=== PATIENT | male | born 1940 | race Caucasian/White ===

== ENCOUNTER 2017-01-11 15:34 | Emergency (ER) | payer MEDICARE, OTHER ==
[2017-01-11 14:07] LABS: BASOPHILS 0.3 %; BASOPHILS ABSOLUTE 0.03 10/3/uL (0.0-0.16); EOSINOPHILS 2.4 %; EOSINOPHILS ABSOLUTE 0.26 10/3/uL (0.0-0.53); ER CBC TAT 0 Hrs 03 Mins; HEMATOCRIT 42.8 % (40.0-51.0); HEMOGLOBIN 15.3 g/dL (13.6-17.8); IMMATURE GRANULOCYTES 0.3 %; IMMATURE GRANULOCYTES ABSOLUTE 0.03 10/3/uL (0.0-0.11); LYMPHOCYTES ABSOLUTE 2.47 10/3/uL (0.67-4.30); MANUAL DIFF NO %; MEAN CORPUS HGB CONC 35.7 g/dL (32.0-36.0); MEAN CORPUSCULAR HEMOGLOB 29.8 pg (26.0-34.0); MEAN CORPUSCULAR VOLUME 83.3 fL (80-100); MEAN PLATELET VOLUME 11.3 fL (9.2-13.0); MONOCYTES 9.5 %; MONOCYTES ABSOLUTE 1.02 10/3/uL (0.21-1.20); NEUTROPHILS 64.5 %; NEUTROPHILS ABSOLUTE 6.93 10/3/uL (2.02-8.40); PLATELET COUNT 202 10/3/uL (150-400); RBC DISTRIBUTION WIDTH 14.7 % (12.0-16.0); RED CELL COUNT 5.14 10/6/uL (4.7-6.1); WHITE BLOOD CELLS 10.7 10/3/uL (4.5-10.5)
[2017-01-11 14:15] LABS: INTERNATIONAL NORMAL RATI 1.1 UNITS (-); PARTIAL THROMBO TIME 31.4 SEC (22.5-37.2); PROTIME (NOT ORD) 14.2 SEC (12.0-14.5)
[2017-01-11 14:26] LABS: CALCIUM, SERUM 9.3 MG/DL (8.5-10.4); CHEST PAIN PROFILE TAT 0 Hrs 22 Mins; CHLORIDE, SERUM 102 MMOL/L (96-112); CO2 (CARBON DIOXIDE) 26 MMOL/L (24-34); GFR AFRICAN AMERICAN 39 ML/MIN (>=60); GFR NON AFRICAN AMERICAN 34 ML/MIN (>=60); GLUCOSE, SERUM 85 MG/DL (60-99); POTASSIUM, SERUM 3.5 MMOL/L (3.5-5.3); SODIUM, SERUM 140 MMOL/L (135-148); TROPONIN I <0.02 NG/ML (<0.05)
[2017-01-11 14:27] LABS: BUN (BLOOD UREA NITROGEN) 42 MG/DL (6-23); CREATININE 1.88 MG/DL (0.70-1.30)
[~2017-01-11 15:34] MED LIST: CRESTOR5 MG PO; DIOVAN HCT320 MG/25 PO; DYMISTA; DYMISTA NASAL S23 GM NAS; GLUCPH PO; METHOC500B PO; NORV5 PO; PHOSPHA 250 PO; PRAVACHOL40 MG PO; PROBIOTIC PO; RAPAFLO4 MG PO; SPIRO25 PO; TRICOR145 PO; VITAMIN D1000 UNI1 PO
[2017-02-09] MEDS ORDERED: PRILO PO (15:15)
[2017-02-09] MEDS ORDERED: PHOSPHA 250 PO (15:16)
[2017-02-09] MEDS ORDERED: EXFORGE HC4 PO (15:17)
[2017-02-09] MEDS ORDERED: GLUCPH PO (15:18)
[2017-02-09] MEDS ORDERED: NORV10 PO (15:18)
[2017-02-09] MEDS ORDERED: DITRO5 PO (15:25)
== END 2017-01-11 15:35 | disposition home or self-care (01) ==
LOC: ER 15:34
PROVIDERS: Emergency Medicine
DX: R07.89 Other chest pain (principal); I10 Essential (primary) hypertension; K21.9 Gastro-esophageal reflux disease without esophagitis; E11.9 Type 2 diabetes mellitus without complications; Z87.442 Personal history of urinary calculi; Z91.040 Latex allergy status; Z79.899 Other long term (current) drug therapy
CPT/HCPCS: 71020; 80048; 83735; 84484; 85025; 85610; 85730; 93005; 99285

== ENCOUNTER 2017-02-11 09:23 | Day surgery (SDC) | payer MEDICARE, OTHER ==
[2017-02-10 09:52] LABS: HEMOGLOBIN 14.5 g/dL (13.6-17.8)
[2017-02-10 10:07] LABS: BUN (BLOOD UREA NITROGEN) 25 MG/DL (6-23); CALCIUM, SERUM 9.4 MG/DL (8.5-10.4); CHLORIDE, SERUM 105 MMOL/L (96-112); CO2 (CARBON DIOXIDE) 29 MMOL/L (24-34); CREATININE 1.45 MG/DL (0.70-1.30); GFR AFRICAN AMERICAN 54 ML/MIN (>=60); GFR NON AFRICAN AMERICAN 46 ML/MIN (>=60); POTASSIUM, SERUM 3.9 MMOL/L (3.5-5.3); SODIUM, SERUM 143 MMOL/L (135-148)
[2017-02-10 10:08] LABS: GLUCOSE, SERUM 146 MG/DL (60-99)
--- NOTE | ~2017-02-11 | OP ---
Record Of Operation [facility] [address] [place]. [address] NAME: KAROLYN WASHBURN : 40 STATUS : [facility]#: [id number] AGE: 76 ADM/REG DATE : 02/11/17 MR#: [id number] REPORT SERV DATE: 02/12/17 DICTATED BY: IONA MANRIQUE DATE: 02/11/17 REPORT STATUS : Draft TRANSCRIBED BY: MODL DATE: 02/11/17 DATE OF PROCEDURE: 02/11/2017 PREOPERATIVE DIAGNOSES: 1. Basal cell carcinoma of the right upper cheek. 2. Tricholemmoma of the right mid cheek. PROCEDURES PERFORMED: 1. Wide local excision, right basal cell carcinoma of the upper cheek. 2. Rotation advancement flap closure of 3.5 x 1.5 cm defect after removing the Burow's triangle. 3. Wide local excision of the right cheek basal cell carcinoma with a 3.5 x 1.5 defect. 4. Layered closure of a 1.5 x 0.8 cm defect. SURGEON: Iona Manrique M.D. TUBE LASER OPERATOR: Aaron. ANESTHESIA: MAC (monitored anesthesia care). COMPLICATIONS: None. CONDITION: Stable to recovery. INDICATION: A 76-year-old male with right upper cheek basal cell carcinoma and right mid cheek tricholemmoma. The risks, benefits, and alternatives to excision were explained and he agreed. PROCEDURE IN DETAIL: The patient was identified in preoperative holding, taken back to the operating room, and placed supine on the operating room table. Monitored anesthesia care was established. His right upper cheek was inspected and the basal cell carcinoma was outlined with a surgical marking pen. A 5 mm margin was marked around this and infiltrated subcutaneously with 1% lidocaine with 1:100,000 epinephrine. The right mid cheek tricholemmoma was outlined with a surgical marking pen with a 2 mm margin and infiltrated subcutaneously with 1 mL of 1% lidocaine with 1:100,000 epinephrine. He was then prepped and draped in a standard fashion for the operation. Using 2.5x loupe magnification and headlight illumination, the operation commenced. The tricholemmoma was initially excised using a 15 blade and the needle tip cautery. The defect was 1.5 cm in length x 0.8 cm in width. It was undermined peripherally and closed in layers using 3-0 Vicryl and a 4-0 interrupted Prolene. The right upper cheek lesion was then excised using a 15 C blade, and needle tip cautery. A portion of the orbicularis auris fascia was taken with the specimen. It was stitched at 12 o'clock with a 3-0 Vicryl suture and sent for frozen section analysis. This showed clear margins, but with a close deep margin, so the deep margin was reexcised and inked for permanent pathology analysis. The defect was 2 cm x 1.5 cm, but due to his tight cheek configuration and the interface with the lower eye lid a rotation advancement flap was selected to prevent pulling the lower eyelid inferiorly. This was designed by [facility] [address] [place]. [address] NAME: KAROLYN WASHBURN : 40 STATUS : [facility] PAT#: [id number] AGE: 76 ADM/REG DATE : 02/11/17 MR#: [id number] REPORT SERV DATE: 02/12/17 DICTATED BY: IONA MANRIQUE DATE: 02/11/17 REPORT STATUS : Draft TRANSCRIBED BY: MODL DATE: 02/11/17 following a skin crease in the teller's feet wrinkles of the lateral cheek down into the preauricular area. A Burow's triangle was excised to allow for advancement without dog ear formation. The skin was elevated in the subcutaneous plane and rotated into the 2 x 1.5 cm defect. A Burow's triangle was removed inferiorly to actually prevent dog ear formation and this was an additional 1.5 cm area of Burow's triangle making the defect actually a 3.5 x 1.5 cm defect. The wound was closed in layers using 4-0 Vicryl suture and a 5-0 interrupted Prolene. The interface with the lower eyelid was closed using a 6-0 fast-absorbing chromic suture. Steri-Strips were placed on both wounds at the end of the case. The patient was awakened and taken to recovery in stable condition. There were no complications. PH/MODL Iona Manrique M.D. / [id number] CC: Machelle Camilo MD
[~2017-02-11 09:23] MED LIST changes: +DITRO5 PO; +EXFORGE HC4 PO; +NORV10 PO; +PRILO PO
== END 2017-02-11 18:00 | disposition home or self-care (01) ==
LOC: SDC 09:23
PROVIDERS: Specialist
PROC: 0HB1XZZ Excision of Face Skin, External Approach (ICD-10-PCS; 2017-02-11)
PROC: 0HX1XZZ Transfer Face Skin, External Approach (ICD-10-PCS; 2017-02-11)
PROC: 0HQ1XZZ Repair Face Skin, External Approach (ICD-10-PCS; principal; 2017-02-11 11:30)
DX: C44.319 Basal cell carcinoma of skin of other parts of face (principal); D23.39 Other benign neoplasm of skin of other parts of face; I12.9 Hypertensive chronic kidney disease with stage 1 through stage 4 chronic kidney disease, or unspecified chronic kidney disease; N18.9 Chronic kidney disease, unspecified; N20.0 Calculus of kidney; N40.0 Benign prostatic hyperplasia without lower urinary tract symptoms; E11.22 Type 2 diabetes mellitus with diabetic chronic kidney disease; G47.33 Obstructive sleep apnea (adult) (pediatric); K21.9 Gastro-esophageal reflux disease without esophagitis; Z91.19 Patient's noncompliance with other medical treatment and regimen; Z91.040 Latex allergy status; Z79.84 Long term (current) use of oral hypoglycemic drugs; Z79.899 Other long term (current) drug therapy
CPT/HCPCS: 80048; 82962; 85014; 85018; 88305; 88331; 88332; 93005; J2250; J2370; J3010

== ENCOUNTER 2017-02-13 06:38 | Emergency (ER) | payer MEDICARE, OTHER | END 2017-02-13 09:00 | disposition home or self-care (01) | LOC: ER 06:38 | PROC: 0T9B70Z Drainage of Bladder with Drainage Device, Via Natural or Artificial Opening (ICD-10-PCS; principal; 2017-02-13) | DX: R33.9 Retention of urine, unspecified (principal); I10 Essential (primary) hypertension; K21.9 Gastro-esophageal reflux disease without esophagitis; E11.9 Type 2 diabetes mellitus without complications; Z87.442 Personal history of urinary calculi; K64.9 Unspecified hemorrhoids; Z91.040 Latex allergy status; Z79.84 Long term (current) use of oral hypoglycemic drugs; Z79.899 Other long term (current) drug therapy; Z85.820 Personal history of malignant melanoma of skin | CPT/HCPCS: 99283 ==